=== PATIENT | female | born 2000 | race Caucasian/White ===

== ENCOUNTER 2022-11-23 17:38 | Emergency (ER) | payer MEDICAID | END 2022-11-23 20:00 | disposition home or self-care (01) | LOC: M ED 17:38 | DX: R10.9 Unspecified abdominal pain (principal); F84.0 Autistic disorder; Z88.8 Allergy status to other drugs, medicaments and biological substances; Z88.1 Allergy status to other antibiotic agents; Z91.011 Allergy to milk products ==

== ENCOUNTER 2023-10-24 11:10 | Emergency (ER) | payer MEDICAID ==
[~2023-10-24] VITALS: Ht 170.2 cm; Wt 59.5 kg
[2023-10-24] MEDS ORDERED: ACETAMINOPHEN 500 MG TAB PO ONE (11:55)
[2023-10-24 12:11] LABS: BASO # 0.1 10^3/uL (0.0-0.2); BASO % 1.2 % (0.0-1.0); EOS # 0.1 10^3/uL (0.0-0.5); EOS % 1.9 % (0.0-3.0); HEMATOCRIT 39.2 % (36.0-47.0); LYMPH # 1.5 10^3/uL (1.5-5.0); LYMPH % 26.3 % (24.0-44.0); MEAN CORPUSCULAR HEMOGLOBIN 29.2 pg (27.0-33.0); MEAN CORPUSCULAR HGB CONC 33.2 g/dl (32.0-36.5); MEAN CORPUSCULAR VOLUME 88.1 fl (80.0-96.0); MONO # 0.4 10^3/uL (0.0-0.8); NEUTROPHILS # 3.7 10^3/uL (1.5-8.5); NEUTROPHILS % 63.3 % (36.0-66.0); PLATELET COUNT, AUTOMATED 302 10^3/uL (150-450); RED BLOOD COUNT 4.45 10^6/uL (4.00-5.40); WHITE BLOOD COUNT 5.8 10^3/uL (4.0-10.0)
[2023-10-24] MEDS ORDERED: ISOVUE-370 76% 100ML VIAL As Ordered ONE (12:20)
[2023-10-24 12:31] LABS: ALBUMIN 3.7 G/DL (3.2-5.2); BILIRUBIN,DIRECT 0.1 MG/DL (<0.4); BILIRUBIN,TOTAL 0.4 MG/DL (0.3-1.2); TOTAL PROTEIN 6.3 G/DL (5.7-8.2)
[2023-10-24] MEDS ORDERED: MAGNESIUM CITRATE 300ML BTL PO ONE (14:30)
[2023-10-24 14:35] VITALS: BP 132/88; TEMP 97.8; O2SAT 97
[2023-10-24] MEDS ORDERED: BACT800T5 PO ×2 (14:47→14:52)
== END 2023-10-24 14:38 | disposition home or self-care (01) ==
LOC: EDBD 11:10 → M ED 11:10
DX: K59.00 Constipation, unspecified (principal); N39.0 Urinary tract infection, site not specified; Z79.899 Other long term (current) drug therapy; Z91.011 Allergy to milk products
CPT/HCPCS: 36415; 74177; 80047; 80076; 81001; 83690; 84702; 85025; 87086; 93041; 99284; Q9967

== ENCOUNTER 2024-04-14 12:38 | Emergency (ER) | payer MEDICAID, OTHER ==
[~2024-04-14] VITALS: Ht 170.2 cm; Wt 55.9 kg
[~2024-04-14 12:38] MED LIST: BACT800T5 PO
[2024-04-14 12:58] VITALS: BP 120/57; TEMP 98.1
[2024-04-14] MEDS: HALOPERIDOL LACTATE 5MG/ML VIAL IM ONE (14:06)
[2024-04-14] MEDS: LORazepam 2 MG/ML 1ML VIAL IM ONE (14:06)
[2024-04-14] MEDS: diphenhydrAMINE 50MG/ML VIAL IM ONE (14:06)
[2024-04-14 14:17] LABS: HEMOGLOBIN 12.9 g/dl (12.0-15.5); MEAN CORPUSCULAR HEMOGLOBIN 28.7 pg (27.0-33.0); MEAN CORPUSCULAR HGB CONC 32.3 g/dl (32.0-36.5); MEAN CORPUSCULAR VOLUME 89.1 fl (80.0-96.0); PLATELET COUNT, AUTOMATED 415 10^3/uL (150-450); RED BLOOD COUNT 4.49 10^6/uL (4.00-5.40); WHITE BLOOD COUNT 11.7 10^3/uL (4.0-10.0)
[2024-04-14 14:34] LABS: ETHYL ALCOHOL (ETHANOL) 0.004 % (0.000-0.010)
[2024-04-14 14:35] LABS: SALICYLATE LEVEL < 3.0 MG/DL (<30)
[2024-04-14 14:36] LABS: ALBUMIN 3.9 G/DL (3.2-5.2); ALKALINE PHOSPHATASE 51 U/L (46-116); ALT/SGPT 17 U/L (7.0-40); AST/SGOT 13 U/L (<34); BILIRUBIN,DIRECT 0.1 MG/DL (<0.4); BILIRUBIN,TOTAL 0.5 MG/DL (0.3-1.2); BLOOD UREA NITROGEN 9 MG/DL (9-23); CALCIUM LEVEL 9.3 MG/DL (8.5-10.1); CARBON DIOXIDE LEVEL 22 MMOL/L (20-31); CHLORIDE LEVEL 106 MMOL/L (98-107); CREATININE FOR GFR 0.76 MG/DL (0.55-1.30); GLOMERULAR FILTRATION RATE > 60.0 (>60); GLUCOSE, FASTING 82 MG/DL (60-100); POTASSIUM SERUM 4.2 MMOL/L (3.5-5.1); SODIUM LEVEL 139 MMOL/L (136-145); TOTAL PROTEIN 6.9 G/DL (5.7-8.2)
[2024-04-14 14:38] LABS: THYROID STIMULATING HORMONE 2.297 uIU/ML (0.55-4.78)
[2024-04-14] MEDS ORDERED: DULO1CAP5 PO (14:59)
[2024-04-14] MEDS ORDERED: L-NO1TBD6 PO (14:59)
[2024-04-14] MEDS ORDERED: CLON0.3T PO (14:59)
[2024-04-14] MEDS ORDERED: LURA60TA PO (14:59)
[2024-04-14] MEDS ORDERED: GUAN1TA PO (14:59)
[2024-04-14] MEDS ORDERED: ALPR0.5T3 PO (14:59)
[2024-04-14] MEDS ORDERED: BENZ1TAB5 PO (14:59)
[2024-04-14] MEDS ORDERED: HOME MED LIST COMPLETE! XX SCH (15:00)
== END 2024-04-14 16:09 | disposition home or self-care (01) ==
LOC: M ED 12:38
DX: F84.0 Autistic disorder (principal); Z88.1 Allergy status to other antibiotic agents; Z91.011 Allergy to milk products; Z79.83 Long term (current) use of bisphosphonates; Z79.899 Other long term (current) drug therapy
CPT/HCPCS: 80048; 80076; 80143; 82077; 84443; 85027; 96372; 99285; J1200; J1630; J2060